=== PATIENT | female | born 1955 | race African-American/Black ===

== ENCOUNTER → 2017-08-23 | Outpatient (CLI) | payer BC, MEDICAID ==
[~2017-08-23] VITALS: Ht 162.6 cm; Wt 73.9 kg
[~2017-08-23] MED LIST: ACET300T4 PO; ALBUAER3 IN; AZEL0.1S; FLUT500M2 INH; HYDR25TA4 PO; NIFE30TA87 PO; PANT40TA2 PO; POT8T PO
== END | disposition home or self-care (01) ==
LOC: Rad HDHVI 07:56
PROVIDERS: ATTEND Internal Medicine Cardiovascular Disease
DX: I10 Essential (primary) hypertension (principal)
CPT/HCPCS: 78452; 93017; 93306; 96374; A9500

== ENCOUNTER 2018-12-20 21:58 | Emergency (ER) | payer MEDICAID ==
[~2018-12-20] VITALS: Ht 162.6 cm; Wt 72.6 kg
[~2018-12-20 21:58] MED LIST changes: +NIFE-16 PO; -NIFE30TA87 PO
[2018-12-20] MEDS ORDERED: cloNIDine HCL 0.1 MG TAB PO ONE (22:15)
[2018-12-20] MEDS ORDERED: clonazePAM 0.5 MG TAB PO ONE (22:15)
[2018-12-20 22:35] LABS: Basophils # (auto) 0 uL; Basophils % (auto) 0.5 % (0.0-2.0); Eosinophils # (auto) 0.2 uL; Eosinophils % (auto) 2.3 % (0.0-7.0); Hematocrit 43.9 % (36.0-46.0); Hemoglobin 14.4 g/dL (12.2-16.2); Lymphocytes # (auto) 3.1 uL; Lymphocytes % (auto) 39.3 % (10.0-50.0); Mean Corpuscular Hemoglobin 28.1 pg (28.0-32.0); Mean Corpuscular Hgb Conc. 32.7 g/dL (32.0-36.0); Mean Corpuscular Volume 85.8 fL (80.0-100.0); Monocytes # (auto) 0.7 uL; Monocytes % (auto) 9.4 % (0.0-12.0); Neutrophils # (auto) 3.8 uL; Neutrophils % (auto) 48.5 % (37.0-80.0); Platelet Count (auto) 255 10^3/uL (140-450); Red Blood Cells 5.11 10^6/uL (4.0-5.20); Red Cell Distribution Width 13.4 % (11.8-14.3); White Blood Cell 7.8 10^3/uL (4.4-10.8)
[2018-12-20 22:51] LABS: Alanine Aminotransferase 19 U/L (13-56); Anion Gap 6 (5-15); Aspartate Aminotransferase 19 U/L (15-37); BUN/Creatinine Ratio 21.3; Blood Urea Nitrogen 16 mg/dL (7-18); Calcium 9.4 mg/dL (8.5-10.1); Carbon Dioxide 30 mmol/L (21-32); Chloride 103 mmol/L (98-107); GFR African American > 60 mL/min; GFR Non-African American > 60 mL/min; Glucose 99 mg/dL (74-106); Potassium 3.6 mmol/L (3.5-5.1); Sodium 139 mmol/L (136-145)
[2018-12-20 22:56] LABS: Alkaline Phosphatase 108 U/L (45-117); Bilirubin, Total 0.4 mg/dL (0.2-1.0); Total Protein 7.7 g/dL (6.4-8.2)
[2018-12-21 03:38] VITALS: BP 146/91
== END 2018-12-21 04:14 | disposition left against medical advice (07) ==
LOC: ER 21:58
DX: R07.89 Other chest pain (principal); R11.0 Nausea; R20.0 Anesthesia of skin
CPT/HCPCS: 36415; 71045; 80053; 84484; 85025; 93005

== ENCOUNTER 2019-03-20 13:05 | Emergency (ER) | payer MEDICAID ==
[~2019-03-20] VITALS: Ht 162.6 cm; Wt 73.9 kg
[2019-03-20 13:10] VITALS: BP 135/84
[2019-03-20] MEDS ORDERED: METHOCARBAMOL 500 MG TAB PO ONE (14:30)
[2019-03-20] MEDS ORDERED: KETOROLAC TROMETH 60MG/2ML VIAL IM ONE (14:30)
== END 2019-03-20 14:49 | disposition home or self-care (01) ==
LOC: ER 13:21
DX: S46.911A Strain of unspecified muscle, fascia and tendon at shoulder and upper arm level, right arm, initial encounter (principal); J45.909 Unspecified asthma, uncomplicated; I10 Essential (primary) hypertension; F17.200 Nicotine dependence, unspecified, uncomplicated; Z79.899 Other long term (current) drug therapy; X58.XXXA Exposure to other specified factors, initial encounter; Y93.89 Activity, other specified; Y92.89 Other specified places as the place of occurrence of the external cause; Y99.8 Other external cause status
CPT/HCPCS: 73030; 96372; 99283; J1885

== ENCOUNTER → 2020-01-30 | Day surgery (SDC) | payer OTHER ==
[~2020-01-30] VITALS: Ht 162.6 cm; Wt 74.4 kg
[~2020-01-30] MED LIST changes: -ACET300T4 PO; +AMLO5TAB15 PO; -AZEL0.1S; +BUPIVACAINE 0.25% INJ 50ML VIAL ONE; +CHOL500021 PO; +CYCL1TAB18 PO; +ETOMIDATE (2MG/ML) 20ML VIAL IV ONE; +GLYCOPYRROLATE 0.2 MG/ML 1ML VIAL ONE; +HYDR-531 PO; +HYDROmorphone HCL 2 MG/ML VL IV PRN; +HYDROmorphone HCL 2 MG/ML VL ONE; +LIDOCAINE 1% (LOCAL ANESTH.) PF 5ml SDV ONE; +METO-169 PO; +METOCLOPRAMIDE HCL 5MG/ml INJ 2ml VIAL ONE; +MIDAZOLAM HCL 1MG/1ML-2 ML VIAL ONE; +NALOXONE HCL 0.4 MG/ML VIAL IV PRN; +NEOSTIGMINE 1 MG/ML INJ (10mg/10ML VIAL) ONE; -NIFE-16 PO; +OMEP20TA PO; +ONDANSETRON HCL 4 MG/2 ML VIAL IV PRN; -POT8T PO; +POTA-220 PO; +ROCURONIUM 10MG/ML 10ML VIAL IV ONE; +SIMV-13 PO; +SUCCINYLCHOLINE CHLORIDE 20 MG/ML 10ML VIAL IV ONE; +ceFAZolin 1GM/50ML 50 ML IV ONE; +fentaNYL CITRATE 100 MCG/2 ML VL ONE; +hydrALAZINE HCL 20 MG/ML VL ONE
[2020-01-30] MEDS: HYDROmorphone HCL 2 MG/ML VL IV PRN ×2 (10:21→10:32)
[2020-01-30 11:25] VITALS: BP 138/73
== END | disposition home or self-care (01) ==
LOC: SUR 06:04
PROVIDERS: ATTEND Orthopaedic Surgery Adult Reconstructive Orthopaedic Surgery
DX: S52.571A Other intraarticular fracture of lower end of right radius, initial encounter for closed fracture (principal); S52.511A Displaced fracture of right radial styloid process, initial encounter for closed fracture; I25.118 Atherosclerotic heart disease of native coronary artery with other forms of angina pectoris; I10 Essential (primary) hypertension; J45.909 Unspecified asthma, uncomplicated; E78.00 Pure hypercholesterolemia, unspecified; K21.9 Gastro-esophageal reflux disease without esophagitis; F12.90 Cannabis use, unspecified, uncomplicated; Z79.899 Other long term (current) drug therapy; Z85.3 Personal history of malignant neoplasm of breast; Z98.51 Tubal ligation status; Z87.442 Personal history of urinary calculi; W18.39XA Other fall on same level, initial encounter; Y93.89 Activity, other specified; Y92.89 Other specified places as the place of occurrence of the external cause; Y99.8 Other external cause status
CPT/HCPCS: 25609; 73100; C1713; J0330; J0360; J0690; J1170; J2250; J2765; J3010; J3490; 76000